=== PATIENT | female | born 1950 | race Hispanic/Latino ===

== ENCOUNTER 2017-05-30 12:04 | Emergency (ER) | payer MEDICARE ==
[~2017-05-30] VITALS: Ht 162.6 cm; Wt 63.5 kg
[2017-05-30] MEDS ORDERED: ALBUTEROL SULF 0.083% NEB SOLN 3 ML NEB NEB STA (12:16)
[2017-05-30] MEDS ORDERED: SODIUM CHLORIDE 0.9% 500ML 500 ML IV STA (12:16)
[2017-05-30] MEDS ORDERED: IPRATROPIUM BROMIDE 0.02% 2.5 ML NEB NEB STA (12:16)
[2017-05-30] MEDS ORDERED: CEFTRIAXONE SOD 1 GM VIAL IV ONE (13:00)
--- NOTE | 2017-05-30 13:26 | Diagnostic Imaging Report ---
EXAMINATION: Chest, CHEST 2 VIEWS INDICATION: Fever. Cough. COMPARISON: None FINDINGS: LINES: None. Heart: Normal cardiac silhouette. Vascular: The pulmonary vasculature is within normal limits. Atherosclerotic calcifications of the aortic arch. Tortuous thoracic aorta. Mediastinum: No mediastinal, hilar, or axillary mass or lymphadenopathy. Lungs: No parenchymal mass. No focal consolidation. Bibasilar atelectasis. Pleura: No pleural effusion. No pneumothorax. Bones: No acute osseous abnormality. Degenerative changes of the thoracic spine. Kyphotic angulation of the thoracic spine. Soft tissues: Normal. Impression: No acute radiographic abnormality. Signed by: Dr. Jayant Bartholomew M.D. on 05/30/2017 1:23 PM
[2017-05-30 13:49] LABS: BASOPHILS % 0.4 % (0.0-1.0); EOSINOPHILS % 0.4 % (0.0-6.0); HEMATOCRIT 40.2 % (34.2-44.1); HEMOGLOBIN 13.4 g/dL (12.0-16.0); LYMPHOCYTES # (AUTO) 0.9 (1.0-3.2); LYMPHOCYTES % 33.5 % (18.0-39.1); MEAN CORPUSCULAR HEMOGLOBIN 29.3 pg (28-32); MEAN CORPUSCULAR HGB CONC 33.3 g/dL (31-35); MONOCYTES # (AUTO) 0.2 (0.2-0.8); MONOCYTES % 7.6 % (4.4-11.3); NEUTROPHILS # (AUTO) 1.6 (2.1-6.9); NEUTROPHILS % 57.7 % (38.7-80.0); PLATELET COUNT 127 x10e3/uL (140-360); RED BLOOD COUNT 4.57 x10e6/uL (3.6-5.1)
[2017-05-30 13:59] LABS: BILIRUBIN,URINE NEGATIVE (NEGATIVE); CLARITY,URINE HAZY (CLEAR); COLOR,URINE YELLOW (YELLOW); KETONES,URINE NEGATIVE (NEGATIVE); LEUKOCYTE ESTERASE ,URINE 2+ (NEGATIVE); NITRITE,URINE NEGATIVE (NEGATIVE); PROTEIN,URINE DIPSTICK 2+ (NEGATIVE); URINE UROBILINOGEN 0.2 mg/dL (0.2 - 1)
[2017-05-30 14:06] LABS: BACTERIA,URINE FEW /HPF; EPITHELIAL CELLS,URINE FEW /LPF; WBC,URINE (MAN) 21-50 /HPF (0-5)
[2017-05-30 14:08] LABS: ALANINE AMINOTRANSFERASE 33 IU/L (0-55); ALBUMIN/GLOBULIN RATIO 1.1 (0.8-2.0); ALKALINE PHOSPHATASE 42 IU/L (40-150); ANION GAP 14.4 mmol/L (8-16); BLOOD UREA NITROGEN 12 mg/dL (7-26); BUN/CREATININE RATIO 14 (6-25); CALCIUM 9.4 mg/dL (8.4-10.2); CARBON DIOXIDE 28 mmol/L (22-29); CHLORIDE 103 mmol/L (98-107); CREATINE KINASE 1055 IU/L (29-168); CREATININE, SERUM 0.87 mg/dL (0.57-1.11); EST GLOMERULAR FILTRATION RATE > 60 ML/MIN (60-); GLUCOSE 88 mg/dL (74-118); POTASSIUM 3.4 mmol/L (3.5-5.1); SODIUM 142 mmol/L (136-145)
[2017-05-30 15:54] VITALS: BP 108/65
== END 2017-05-30 16:06 | disposition home or self-care (01) ==
LOC: ER 12:04
DX: R50.9 Fever, unspecified (principal); R05 Cough; J11.1 Influenza due to unidentified influenza virus with other respiratory manifestations
CPT/HCPCS: 36415; 71020; 80053; 81001; 82550; 82553; 84484; 85025; 87040; 87086; 87400; 93005; 94640; 96360; 99284; J0696; J7040; 71046

== ENCOUNTER 2018-09-25 12:17 | Emergency (ER) | payer MEDICARE ==
[~2018-09-25] VITALS: Ht 162.6 cm; Wt 59.0 kg
--- OUTSIDE RECORDS SUMMARY | 2018-09-25 12:20 | XMS REPORT ---
Author [facility] Address Unknown Phone Unavailable Care Team Providers Care Graphics Specialist Name Role Phone Valerie MUNGUIA Unavailable Unavailable Problems This patient has no known problems. Allergies, Adverse Reactions, Alerts This patient has no known allergies or adverse reactions. Medications This patient has no known medications. Results Test Description Test Time Test Comments Text Results Atomic Results Result Comments CHEST 2 VIEWS [place] [id number] [place] [id number] Patient Name: OSORIO VILLAFUERTE MR #: [id number] : 1950 Age/Sex: 66/F Req #: [id number] Adm Physician: Ordered by: MICHAELA HIDALGO [employer] Report #: [id number] Location: ER Room/Bed: Procedure: [id number] DX/CHEST 2 VIEWS Exam Date: 05/30/17 Exam Time: 1245 REPORT STATUS: Signed EXAMINATION: Chest, CHEST 2 VIEWS INDICATION: Fever. Cough. COMPARISON: None FINDINGS: LINES: None. Heart: Normal cardiac silhouette. Vascular: The pulmonary vasculature is within normal limits. Atherosclerotic calcifications of the aortic arch. Tortuous thoracic aorta. Mediastinum: No mediastinal, hilar, or axillary mass or lymphadenopathy. Lungs: No parenchymal mass. No focal consolidation. Bibasilar atelectasis. Pleura: No pleural effusion. No pneumothorax. Bones: No acute osseous abnormality. Degenerative changes of the thoracic spine. Kyphotic angulation of the thoracic spine. Soft tissues: Normal. Impression: No acute radiographic abnormality. Signed by: Dr. Yariel Williamson M.D. on 05/30/2017 1:23 PM Dictated By: YARIEL WILLIAMSON MD Electro nically Signed By: YARIEL WILLIAMSON MD on 05/30/17 1323 Transcribed By: MURRAY on 05/30/17 1323 COPY TO: MICHAELA HIDALGO NP
== END 2018-09-25 13:01 | disposition home or self-care (01) ==
LOC: ER 12:17
DX: J02.0 Streptococcal pharyngitis (principal); H92.02 Otalgia, left ear
CPT/HCPCS: 99283

== ENCOUNTER 2022-09-24 09:36 | Emergency (ER) | payer MEDICARE ==
[~2022-09-24] VITALS: Ht 162.6 cm; Wt 59.0 kg
[~2022-09-24 09:36] MED LIST: CEPHALEXIN500 MG PO
[2022-09-24 11:20] LABS: CLARITY,URINE SL CLOUDY (CLEAR); COLOR,URINE YELLOW (YELLOW); LEUKOCYTE ESTERASE ,URINE SMALL (NEGATIVE); NITRITE,URINE NEGATIVE (NEGATIVE)
[2022-09-24 11:21] LABS: KETONES,URINE NEGATIVE (NEGATIVE); PROTEIN,URINE DIPSTICK NEGATIVE (NEGATIVE); URINE UROBILINOGEN 0.2 mg/dL (0.2 - 1)
[2022-09-24] MEDS ORDERED: NAPROXEN 250 MG TAB PO ONE (11:30)
[2022-09-24] MEDS ORDERED: DEXAMETHASONE SOD PHOS 10 MG/1 ML VIAL IV ONE (11:30)
[2022-09-24] MEDS ORDERED: METHOCARBAMOL 500 MG TAB PO ONE (11:30)
[2022-09-24 11:37] LABS: BACTERIA,URINE MANY /HPF; EPITHELIAL CELLS,URINE FEW /LPF; RBC,URINE 0-5 /HPF (0-5)
[2022-09-24] MEDS ORDERED: DEXAMETHASONE SOD PHOS 10 MG/1 ML VIAL IM ONE (12:00)
[2022-09-24] MEDS ORDERED: CEFDINIR 300 MG CAP PO SCH (12:30)
[2022-09-24] MEDS ORDERED: CEFDINIR300 MG PO (13:13)
[2022-09-24] MEDS ORDERED: METHOCARBAMOL750 MG PO (13:13)
[2022-09-24 13:32] VITALS: BP 142/83; PULSE 69; RESP 17; TEMP 98.2; O2SAT 98
== END 2022-09-24 13:33 | disposition home or self-care (01) ==
LOC: ER 10:08
DX: M54.50 Low back pain, unspecified (principal); N39.0 Urinary tract infection, site not specified; M62.830 Muscle spasm of back; M81.0 Age-related osteoporosis without current pathological fracture
CPT/HCPCS: 72110; 81001; 99283; J1100

== ENCOUNTER 2024-02-06 13:00 | Emergency (ER) | payer MEDICARE ==
[~2024-02-06] VITALS: Ht 170.2 cm; Wt 61.2 kg
[~2024-02-06 13:00] MED LIST changes: +ALENDRONATE SOD35 MG PO; +CEFDINIR300 MG PO; +CENTRUM ADULTS1 EACH PO; +METHOCARBAMOL750 MG PO
[2024-02-06 13:24] VITALS: PULSE 67; RESP 17; TEMP 98.6
[2024-02-06] MEDS: IBUPROFEN 400 MG TAB PO ONE (14:36)
[2024-02-06] MEDS: CYCLOBENZAPRINE HCL 10 MG TAB PO ONE (14:36)
[2024-02-06 17:27] VITALS: BP 130/70; PULSE 68; RESP 18; O2SAT 100
== END 2024-02-06 17:28 | disposition home or self-care (01) ==
LOC: ER 13:28
DX: S30.0XXA Contusion of lower back and pelvis, initial encounter (principal); W08.XXXA Fall from other furniture, initial encounter; Y92.89 Other specified places as the place of occurrence of the external cause; M81.0 Age-related osteoporosis without current pathological fracture
CPT/HCPCS: 71250; 72131; 99283